=== PATIENT | female | born 1990 | race Caucasian/White ===

== ENCOUNTER 2019-06-20 05:59 | Day surgery (SDC) | payer OTHER ==
[~2019-06-20] VITALS: Ht 157.5 cm; Wt 104.3 kg
[2019-06-20 06:11] VITALS: BP 136/86
[2019-06-20 12:55] VITALS: BP 122/78
== END 2019-06-20 09:13 | disposition home or self-care (01) ==
LOC: DS 05:59 → DU 05:59 → MU 05:59 → EDSTATUS 08:30 → DU 08:30 → DS 09:13 → DU 09:55 → MU 09:55 → DU 11:23
DX: N83.02 Follicular cyst of left ovary (principal); N83.201 Unspecified ovarian cyst, right side; K66.0 Peritoneal adhesions (postprocedural) (postinfection); K21.9 Gastro-esophageal reflux disease without esophagitis; E11.9 Type 2 diabetes mellitus without complications; I12.9 Hypertensive chronic kidney disease with stage 1 through stage 4 chronic kidney disease, or unspecified chronic kidney disease; N18.9 Chronic kidney disease, unspecified; G40.909 Epilepsy, unspecified, not intractable, without status epilepticus; F03.90 Unspecified dementia, unspecified severity, without behavioral disturbance, psychotic disturbance, mood disturbance, and anxiety; J45.909 Unspecified asthma, uncomplicated; F17.210 Nicotine dependence, cigarettes, uncomplicated; E66.8 Other obesity; Z87.59 Personal history of other complications of pregnancy, childbirth and the puerperium; Z90.49 Acquired absence of other specified parts of digestive tract; Z88.8 Allergy status to other drugs, medicaments and biological substances; Z68.41 Body mass index [BMI] 40.0-44.9, adult; Z98.890 Other specified postprocedural states; Z87.442 Personal history of urinary calculi
CPT/HCPCS: G0378; J0330; J0690; J1170; J2250; J2270; J2704; J2710; J3010; J3490; J7120